=== PATIENT | female | born 1965 | race Caucasian/White ===

== ENCOUNTER → 2016-07-28 | Outpatient (CLI) | payer BC ==
--- NOTE | 2016-07-28 10:55 | DIAGNOSTIC IMAGING REPORT ---
(BARIUM SWALLOW) ESOPHAGUS CLINICAL HISTORY: DYSPHAGIA COMPARISON STUDY: None FLUOROSCOPY TIME: 1.1 minute. 27 fluoroscopic spot images were obtained.. FINDINGS: The patient swallowed barium and effervescent granules without difficulty. Rapid sequence swallows in the AP and lateral projections reveal transient penetration but no evidence of aspiration. No esophageal masses or ulcerations were visualized. There is a tiny sliding hiatal hernia with a minimal distal esophageal ring. This did not impede the passage of a one half inch barium tablet. There is moderate to marked reflux. Esophageal motility appeared normal. IMPRESSION: 1. Normal esophageal motility 2. Moderate gastroesophageal reflux 3. Tiny sliding hiatal hernia 4. A one half barium tablet freely passed into the stomach 5. Transient penetration. No evidence of aspiration. Electronically signed by: Isaías Humphreys M.D. 07/28/2016 10:53 AM Dictated Date/Time: 07/28/2016 10:34 AM
== END | disposition home or self-care (01) ==
LOC: C.RAD 09:57
PROVIDERS: ATTEND Internal Medicine Gastroenterology
DX: R13.10 Dysphagia, unspecified (principal)

== ENCOUNTER → 2017-02-02 | Outpatient (CLI) | payer BC ==
--- NOTE | 2017-02-02 13:32 | DIAGNOSTIC IMAGING REPORT ---
VIDEO SWALLOW CLINICAL HISTORY: 52 years-old Female presenting with DYSPHAGIA. TECHNIQUE: Video fluoroscopic evaluation of swallowing was performed in the AP and lateral projections in conjunction with speech pathology. The patient was administered various textures, including nectar-thick and thin liquid barium, a barium coated wafer, and barium pudding. COMPARISON: Esophagram from 07/28/2016. FINDINGS: There is normal hyoid excursion and epiglottic deflection. No significant penetration or aspiration identified. Swallowing function is within normal limits. Small amount of residual noted in the valleculae, which cleared with subsequent dry swallows. A small hiatal hernia may be present. Fluoroscopy dosage (mGy): Not available. Fluoroscopy time: 1.8 minutes. Number of fluoroscopic spot images: 0. IMPRESSION: 1. No aspiration identified. 2. Small hiatal hernia. 3. Please see the speech pathologist report for detailed findings and recommendations. Electronically signed by: Pranav Gusman M.D. 02/02/2017 1:31 PM Dictated Date/Time: 02/02/2017 1:29 PM
--- NOTE | 2017-02-02 13:45 | SWALLOWING EVALUATION ---
REFERRING SPEECH PATHOLOGIST: n/a HISTORY: This 52 year-old female was referred for a VFSS at [facility] in order to address c/o globus sensation. The patient has a PMH significant for Barium Swallow Study completed in July 2016 revealing moderate reflux, normal motility, a small sliding hiatal hernia, and no aspiration. The patient reports she has had a manometric swallowing study since that time and her LES was determined not to be closing properly. She is anticipating completion of a 24-hour pH-monitoring study in the near future. She reports taking 40mg omeprazole b.i.d., but she has breakthrough reflux despite this regimen. No other PMH is known. Currently the patient's diet level is regular. PROCEDURE: The patient was seen in the Radiology Department of [facility] for the VFSS. Cursory examination of the oral cavity revealed adequate dentition. Movement of the articulators was WNL. The patient was seated on a stool and was viewed in both the Anterior-Posterior (A-P) and Lateral planes. Volitional phonation exercises completed in the A-P plane revealed bilateral vocal fold movement and vocal intensity within functional limits. In the lateral plane, the patient was given the following boluses: 1 tsp. thin liquid barium x 2, single swallow thin liquid barium self-presented from a cup, sequential swallows of thin liquid barium self-presented from a cup, 1 tsp. nectar-thick liquid barium, single swallow nectar-thick liquid barium self-presented from a cup, 1 tsp. barium pudding, and 1 club cracker with barium pudding. The patient was then repositioned into the A-P plane and given 1 tsp. barium pudding. RESULTS: Oral Stage: Labial seal, lingual control during oral bolus hold, mastication, lingual movement for bolus transport, oral bolus clearance and initiation of the pharyngeal swallow were all timely and complete. No oral stage dysphagia. Pharyngeal Stage: Soft palate elevation and laryngeal elevation were complete. There was partial anterior hyoid excursion. Epiglottic inversion and laryngeal vestibular closure were complete. Pharyngeal stripping wave was present, but diminished. Pharyngeal contraction was complete. There was thickness noted at the PES resulting in partial distention and duration of PES opening with partial obstruction of flow. Narrow line of contrast between tongue base and pharyngeal wall and small collections of contrast retention in the valleculae after the swallow. These cleared with second, dry swallows. There was no penetration or aspiration during this study. There was evidence of mild pharyngeal-stage dysfunction as described above. Esophageal Stage: A pudding bolus transited the esophagus without impedance or retention. SUMMARY/RECOMMENDATIONS: This patient presents with mild pharyngeal dysphagia characterized by incomplete anterior hyoid excursion contributing to incomplete PES opening and mildly reduced tongue base retraction. The following is recommended: 1. SLIPPERY diet: choose foods that are moist, loose, slippery; avoid foods that are doughy, dry, thick, pasty; use condiments liberally to make foods slippery; make food and beverage choices that would increase alkalinity and decrease inflammation 2. Compensatory Strategies: avoid icy cold beverages during meals; alternate solids and liquids frequently during meals; remain upright 15-30 minutes after meals; keep head of bed elevated at least 30-degrees at all times 3. Consideration of continued f/u with GI services re: breakthrough s/s reflux and globus sensation. A summary of the results and recommendations was discussed with the patient immediately following the study. She verbalized understanding and is anticipating f/u with the referring physician. Thank you for referral of this patient. Please contact me at if any additional information is needed.
== END | disposition home or self-care (01) ==
LOC: C.RAD 12:47
PROVIDERS: ATTEND Internal Medicine Gastroenterology
DX: R13.10 Dysphagia, unspecified (principal); K44.9 Diaphragmatic hernia without obstruction or gangrene